=== PATIENT | female | born 1970 | race Caucasian/White ===

== ENCOUNTER → 2020-01-29 14:22 | Outpatient (CLI) | payer SELFPAY ==
[2020-01-29 18:07] LABS: Hemoglobin A1c 5.7 % (3.8-5.6)
[2020-02-01 16:56] LABS: HPV APTIMA, High Risk Negative (Negative)
[2020-02-01 16:57] LABS: HPV Reflexed? YES, CHARGE PATIENT
== END ==
PROVIDERS: Visit Provider Student in an Organized Health Care Education/Training Program
DX: Z13.1 Encounter for screening for diabetes mellitus (principal); Z12.4 Encounter for screening for malignant neoplasm of cervix
CPT/HCPCS: 36415; 83036; 87624; 88175; G0145